=== PATIENT | male | born 1995 | race Caucasian/White ===

== ENCOUNTER 2017-10-31 08:10 | Emergency (ER) | payer OTHER ==
[2017-10-31] MEDS: NS 1,000 ML IV (09:23)
[2017-10-31] MEDS: ONDANSETRON 4MG/2ML VIAL (J2405) IV (09:24)
[2017-10-31] MEDS: METOCLOPRAMIDE INJ 10MG/2ML VIAL (J2765) IV (09:24)
[2017-10-31 09:25] LABS: BASO # 0.1 10^3/uL (0.0-0.2); BASO % 0.9 % (0.0-1.0); EOS # 0.3 10^3/uL (0.0-0.50); EOS % 3.9 % (0.0-3.0); HEMATOCRIT 47.2 % (42.0-52.0); HEMOGLOBIN 16.1 g/dl (14.0-18.0); IMMATURE GRANULOCYTE % 0.2 % (0-3.0); LYMPH # 2.6 10^3/uL (1.5-6.5); MEAN CORPUSCULAR HEMOGLOBIN 29.2 pg (27.0-33.0); MEAN CORPUSCULAR HGB CONC 34.1 g/dl (32.0-36.5); MEAN CORPUSCULAR VOLUME 85.5 fl (80.0-96.0); MONO # 0.6 10^3/uL (0.0-0.8); MONO % 8.9 % (0.0-5.0); NEUTROPHILS # 3.1 10^3/uL (1.8-7.7); NEUTROPHILS % 47.1 % (36.0-66.0); PLATELET COUNT, AUTOMATED 297 10^3/uL (150-450); RED BLOOD COUNT 5.52 10^6/uL (4.30-6.10); RED CELL DISTRIBUTION WIDTH 12.7 % (11.5-14.5); WHITE BLOOD COUNT 6.6 10^3/uL (4.0-10.0)
[2017-10-31 09:48] LABS: ALBUMIN 3.9 GM/DL (3.2-5.2); ALBUMIN/GLOBULIN RATIO 1.05 (1.00-1.93); ALKALINE PHOSPHATASE 103 U/L (45-117); ALT/SGPT 23 U/L (12-78); ANION GAP 7 MEQ/L (8-16); AST/SGOT 12 U/L (7-37); BILIRUBIN,TOTAL 0.7 MG/DL (0.2-1.0); BLOOD UREA NITROGEN 10 MG/DL (7-18); CALCIUM LEVEL 8.4 MG/DL (8.5-10.1); CARBON DIOXIDE LEVEL 29 MEQ/L (21-32); CHLORIDE LEVEL 107 MEQ/L (98-107); CPK CREATINE PHOSPHOKINASE 107 U/L (39-308); CREATININE FOR GFR 0.87 MG/DL (0.70-1.30); GLOMERULAR FILTRATION RATE > 60.0 (>60); GLUCOSE, FASTING 100 MG/DL (70-100); LIPASE 84 U/L (73-393); MB/CK RELATIVE INDEX 0.93 (< OR =4); POTASSIUM SERUM 4.2 MEQ/L (3.5-5.1); SODIUM LEVEL 143 MEQ/L (136-145); TOTAL PROTEIN 7.6 GM/DL (6.4-8.2); TROPONIN I < 0.02 NG/ML (< 0.10)
[2017-10-31 09:53] LABS: INFLUENZA A AMPLIFICATION NEGATIVE (NEGATIVE); INFLUENZA B AMPLIFICATION NEGATIVE (NEGATIVE)
== END 2017-10-31 11:00 | disposition home or self-care (01) ==
LOC: M ED 08:10
DX: J06.9 Acute upper respiratory infection, unspecified (principal); R07.89 Other chest pain; R10.84 Generalized abdominal pain; R11.2 Nausea with vomiting, unspecified; R19.7 Diarrhea, unspecified; Z80.1 Family history of malignant neoplasm of trachea, bronchus and lung; Z88.8 Allergy status to other drugs, medicaments and biological substances
CPT/HCPCS: J2405

== ENCOUNTER 2018-02-09 17:17 | Emergency (ER) | payer OTHER ==
[2018-02-09 18:51] LABS: HEMOGLOBIN 18.3 g/dl (13.5-17.5); MEAN CORPUSCULAR HEMOGLOBIN 29.7 pg (27.0-33.0); MEAN CORPUSCULAR HGB CONC 34.5 g/dl (32.0-36.5); PLATELET COUNT, AUTOMATED 341 10^3/uL (150-450); RED BLOOD COUNT 6.16 10^6/uL (4.30-6.10); RED CELL DISTRIBUTION WIDTH 12.9 % (11.5-14.5); WHITE BLOOD COUNT 8.1 10^3/uL (4.0-10.0)
[2018-02-09 19:16] LABS: AMPHETAMINES LEVEL URINE NEGATIVE (NEGATIVE); BARBITURATES URINE NEGATIVE (NEGATIVE); BENZODIAZEPINES URINE NEGATIVE (NEGATIVE); CANNABINOIDS URINE NEGATIVE (NEGATIVE); COCAINE METABOLITE URINE NEGATIVE (NEGATIVE); METHADONE URINE NEGATIVE (NEGATIVE); OPIATES URINE NEGATIVE (NEGATIVE); PHENCYCLIDINE URINE NEGATIVE (NEGATIVE)
[2018-02-09 19:27] LABS: ALBUMIN 4.3 GM/DL (3.2-5.2); ALBUMIN/GLOBULIN RATIO 0.98 (1.00-1.93); ALKALINE PHOSPHATASE 92 U/L (45-117); ALT/SGPT 39 U/L (12-78); ANION GAP 9 MEQ/L (8-16); AST/SGOT 18 U/L (7-37); BILIRUBIN,DIRECT 0.4 MG/DL (0.0-0.2); BILIRUBIN,TOTAL 1.7 MG/DL (0.2-1.0); BLOOD UREA NITROGEN 14 MG/DL (7-18); CALCIUM LEVEL 9.9 MG/DL (8.5-10.1); CARBON DIOXIDE LEVEL 30 MEQ/L (21-32); CHLORIDE LEVEL 101 MEQ/L (98-107); CREATININE FOR GFR 0.98 MG/DL (0.70-1.30); ETHYL ALCOHOL (ETHANOL) 0.003 % (0.000-0.010); GLOMERULAR FILTRATION RATE > 60.0 (>60); GLUCOSE, FASTING 132 MG/DL (70-100); POTASSIUM SERUM 4.7 MEQ/L (3.5-5.1); SALICYLATE LEVEL < 1.7 MG/DL (5.0-30.0); SODIUM LEVEL 140 MEQ/L (136-145); THYROID STIMULATING HORMONE 0.967 uIU/ML (0.358-3.740); TOTAL PROTEIN 8.7 GM/DL (6.4-8.2)
[2018-02-09 19:34] LABS: ACETAMINOPHEN LEVEL < 2.0 UG/ML (10.0-30.0)
== END 2018-02-09 21:44 | disposition home or self-care (01) ==
LOC: M ED 17:17
DX: R45.89 Other symptoms and signs involving emotional state (principal); Z88.8 Allergy status to other drugs, medicaments and biological substances
CPT/HCPCS: G0480

== ENCOUNTER 2019-02-28 23:24 | Inpatient (IN) | payer OTHER ==
[~2019-02-28] VITALS: Ht 185.4 cm; Wt 69.2 kg
[~2019-02-28 23:24] MED LIST: MUCI600T37 PO; REGL10TA6 PO; ZANA4TAB PO; ZOFR4TAB14 PO
[2019-03-01 00:52] LABS: HEMATOCRIT 49.9 % (42.0-52.0); HEMOGLOBIN 17.1 g/dl (13.5-17.5); MEAN CORPUSCULAR HEMOGLOBIN 31.1 pg (27.0-33.0); MEAN CORPUSCULAR HGB CONC 34.3 g/dl (32.0-36.5); MEAN CORPUSCULAR VOLUME 90.9 fl (80.0-96.0); PLATELET COUNT, AUTOMATED 302 10^3/uL (150-450); RED BLOOD COUNT 5.49 10^6/uL (4.30-6.10); WHITE BLOOD COUNT 6.2 10^3/uL (4.0-10.0)
[2019-03-01 01:01] LABS: ACETAMINOPHEN LEVEL < 2.0 UG/ML (10.0-30.0); ALBUMIN 4.1 GM/DL (3.2-5.2); ALT/SGPT 26 U/L (12-78); BILIRUBIN,DIRECT 0.3 MG/DL (0.0-0.2); BILIRUBIN,TOTAL 1.2 MG/DL (0.2-1.0); BLOOD UREA NITROGEN 14 MG/DL (7-18); CALCIUM LEVEL 8.3 MG/DL (8.5-10.1); CARBON DIOXIDE LEVEL 32 MEQ/L (21-32); CHLORIDE LEVEL 104 MEQ/L (98-107); CREATININE FOR GFR 0.94 MG/DL (0.70-1.30); ETHYL ALCOHOL (ETHANOL) < 0.003 % (0.000-0.010); GLOMERULAR FILTRATION RATE > 60.0 (>60); GLUCOSE, FASTING 104 MG/DL (70-100); POTASSIUM SERUM 3.6 MEQ/L (3.5-5.1); SALICYLATE LEVEL < 1.7 MG/DL (5.0-30.0); SODIUM LEVEL 142 MEQ/L (136-145); TOTAL PROTEIN 7.6 GM/DL (6.4-8.2)
[2019-03-01 01:11] LABS: AMPHETAMINES LEVEL URINE NEGATIVE (NEGATIVE); BARBITURATES URINE NEGATIVE (NEGATIVE); BENZODIAZEPINES URINE NEGATIVE (NEGATIVE); CANNABINOIDS URINE NEGATIVE (NEGATIVE); COCAINE METABOLITE URINE NEGATIVE (NEGATIVE); METHADONE URINE NEGATIVE (NEGATIVE); OPIATES URINE NEGATIVE (NEGATIVE); PHENCYCLIDINE URINE NEGATIVE (NEGATIVE)
[2019-03-01] MEDS ORDERED: ACETAMINOPHEN TAB 650MG DOSE (2X325MG) PO PRN (04:45)
[2019-03-01] MEDS ORDERED: MAALOX 30 ML SUSP *UDC PO PRN (04:45)
[2019-03-01] MEDS ORDERED: traZODone 50 MG TAB PO PRN (04:45)
[2019-03-01] MEDS ORDERED: MOM 30ML SUSPENSION UDC PO PRN (04:45)
[2019-03-01] MEDS ORDERED: OLANZapine ORAL DISINTEGRATING TAB 5MG PO PRN (04:45)
[2019-03-01 05:21] VITALS: BP 130/85
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
--- NOTE | 2019-03-01 15:14 | HPEPDOC ---
General Date of Admission Mar 01, 2019 at 04:32 Date of Service: Mar 01, 2019 Chief Complaint The patient is a 23-year-old male Who presented to the emergency room with a suicidal ideation History of Present Illness Patient is a 23-year-old male with a past medical history of childhood asthma who presented to the emergency room with thoughts of suicide. Patient has reported that he has no prior episodes of this occurring the past. No history of psychiatric issues currently being managed by psychiatry. Hospitalist service was called for medical management/screening. Currently patient denies any headache, nausea, vomiting, chest pain, shortness of breath, palpitations, abdominal pain, constipation, diarrhea, urinary discomfort or any fevers or chills within the last 2 weeks. Patient reports that his appetite has been fairly normal without any significant change in his weight. Home Medications No Active Prescriptions or Reported Meds Allergies Coded Allergies: ibuprofen (Verified Allergy, Mild, HIVES, 03/01/19) Past Medical History Medical History Childhood asthma Surgical History Root canal Family History - Mother and father with no reported medical problems Social History - Denies the use of illicit drugs; patient reports that he uses a vape; reports that he drinks red wine - Denies recent travel or sick contacts - Lives alone - Patient attends [employer] Review of Systems Other systems 10 point review of systems complete, all negative otherwise stated in HPI Vital Signs - Vitals: BP 130/85, HR 58, RR 18, Sat 100%RA, Temp 97.1F - General: Lying in bed, No acute distress, Speaking in full sentences, AAOx3 - HEENT: NC, AT, PERRLA - CVS: RRR, +S1S2 - Lungs: Fair air entry bilaterally, No appreciable wheezing / rales / rhonchi - Abdomen: Soft, Non-distended, Non-tender - Extremities: No lower extremity edema, No calf tenderness - Neuro: No focal motor or sensory deficit - Skin: No visible rashes Laboratory Data Labs 24H Laboratory Tests 2 03/01/19 00:35: Nucleated Red Blood Cells % (auto) 0.0, Anion Gap 6L, Glomerular Filtration Rate > 60.0, Calcium Level 8.3L, Aspartate Amino Transf (AST/SGOT) 15, Alanine Aminotransferase (ALT/SGPT) 26, Alkaline Phosphatase 98, Total Bilirubin 1.2H, Direct Bilirubin 0.3H, Total Protein 7.6, Albumin 4.1, Albumin/Globulin Ratio 1.17, Thyroid Stimulating Hormone (TSH) 1.090, Salicylates Level < 1.7L, Urine Amphetamines Screen NEGATIVE, Urine Benzodiazepines Screen NEGATIVE, Urine Opiates Screen NEGATIVE, Urine Methadone Screen NEGATIVE, Acetaminophen Level < 2.0L, Urine Barbiturates Screen NEGATIVE, Urine Phencyclidine Screen NEGATIVE, Urine Cocaine Metabolite Screen NEGATIVE, Urine Cannabinoids Screen NEGATIVE, Ethyl Alcohol Level < 0.003 CBC/BMP Laboratory Tests 03/01/19 00:35 Red Blood Count 5.49, Mean Corpuscular Volume 90.9, Mean Corpuscular Hemoglobin 31.1, Mean Corpuscular Hemoglobin Concent 34.3, Red Cell Distribution Width 11.9 Plan / VTE VTE Prophylaxis Ordered?: Yes Plan Plan Suicidal ideation - Patient reports that he presented to the emergency room with complaints of suicidal ideation - Patient denies any prior history - Currently being managed by psychiatry Childhood asthma - No evidence of exacerbation - No inhaled therapy ordered DVT prophylaxis - c/w early ambulation Please reconsult as needed Male change management specialist was present for the duration of this history and physical examination SHARA GAN MD Mar 01, 2019 15:14
[2019-03-01 18:12] VITALS: BP 112/56
[2019-03-02 06:24] VITALS: BP 114/57
--- NOTE | 2019-03-02 15:49 | MHIPN ---
DATE OF SERVICE: 03/02/2019 The patient today states that he is not suicidal. He tells me "I only had one suicidal thought yesterday, so I don't know why I got admitted." He then states when I asked him about depression, he says "That is nonexistent." He says he slept good. He has no complaints except that he is upset that he is in the hospital. MENTAL STATUS EXAMINATION: The patient is alert and oriented times three. Eye contact is fair. Psychomotor activity is normal. He is verbally spontaneous. There is no formal thought disorder noted. His mood is okay. His affect is consistent with his mood and full range. He is not psychotic, suicidal, or homicidal. Concentration is fair. Memory intact. Insight and judgment fair. DIAGNOSES: Unspecified depressive disorder, rule out posttraumatic stress disorder (PTSD), rule out antisocial personality disorder. TREATMENT PLAN: At this point, we will continue to observe and monitor the patient for continued elevation and stabilization of his mood and for continued resolution of any suicidal ideations, and we will titrate medications as indicated.
[2019-03-02 18:01] VITALS: BP 126/73
[2019-03-03 06:11] VITALS: BP 108/59
--- NOTE | 2019-03-03 09:08 | MHIPNPDOC ---
[facility] Progress Note Progress Note DATE OF SERVICE: 03/03/19 HISTORY: Patient is a 23 -year-old , AD, male, with history of self--harm by cutting and seen in therapy/group therapy at [facility] for it who presented to ED with his Nohemi due to pt endorsing depression and SI with no plan after groups therapy due to them talking about "heavy things" and stating he wanted to be in a "safe environment per ED. In ED, pt stated that his groups were really depressing as they reminded him of an ex-girlfriend that committed suicide in high school which made him feel guilty and belief that "the therapist doesn't like me, it there was a cartoon version you'd see steam coming out of their ears" (per ED made sarcastic comments when seen make eval difficult). In ED pt denied SI and stated "not that I would ever do it, I just go accepted to [employer] and wouldn't want to tarnish anything" with going. He also stated in ED "I lack emotional concerns for others." Pt also seen in ED with multiple scratches on his forearms he stated were from a friend's cat but Nohemi showed ED staff a text in which pt stated cuts were self-inflicted, and he has a history of this per [facility]. Denied HI in ED VITAL SIGNS: see below NEW TEST RESULTS: see below CURRENT MEDICATIONS: See below. MENTAL STATUS EXAMINATION: General Appearance: well groomed, appears stated age, hospital scrubs/clothing, other (linear cuts on outer forearm healing well) Build: average Demeanor: average, calm Eye Contact: fair Activity: average Behavior: cooperative, calm Speech: clear, reg/rate,rhythm,volume Mood: euthymic, full Mood fine Affect: full, congruent, full range Thought Process: logical/linear, intact Thought Content (Delusions): none reported, denies SI, HI, AVH Thought Content (Other): none reported, appropriate Thought Content (Aggressive): none reported Perception (Hallucinations): none reported Perception (Other): none reported Cognition (Impairment of): none reported Cognition(Intelligence Est.): average Oriented: Awake, Alert, Oriented times three Insight: fair Judgment: Fair Psychosis: Denies DIAGNOSES: depression unspecified r/o PTSD r/o Antisocial personality d/o ASSESSMENT:Pt seen and states that his mood is "alright.". States he slept well last night. Still feels he does not need any medication and appears to be doing well with group attendance. He is attending groups and finding them helpful. He denies SI/HI, hallucinations, delusions. Pt feels safe here. MANAGEMENT PLAN: continue plan medications: none TIME SPENT: 30 minutes. Vital Signs Vital Signs Date Time Temp Pulse Resp B/P (MAP) Pulse Ox O2 Delivery O2 Flow Rate FiO2 03/03/19 06:11 98.7 52 18 108/59 (75) 03/01/19 04:30 100 02/28/19 23:28 Room Air Current Medications Current Medications Acetaminophen (Tylenol Tab) 650 mg Q6HP PRN PO HEADACHE or DISCOMFORT; Start 03/01/19 at 04:45 Al Hydrox/Mg Hydrox/Simethicone (Mylanta) 30 ml Q4HP PRN PO HEARTBURN/INDIGESTION; Start 03/01/19 at 04:45 Home Med (Med Rec Complete!) ASDIRECTED XX ; Start 03/01/19 at 05:45; Stop at 05:45; Status DC Magnesium Hydroxide (Milk Of Magnesia) 30 ml DAILYPRN PRN PO CONSTIPATION; Start 03/01/19 at 04:45 Olanzapine (ZyPREXA ZYDIS) 5 mg Q4HP PRN PO AGITATION; Start 03/01/19 at 04:45 Trazodone HCl (Desyrel) 50 mg QHSP PRN PO INSOMNIA; Start 03/01/19 at 04:45 Allergies Coded Allergies: ibuprofen (Verified Allergy, Mild, HIVES, 03/01/19) LEONARDA COELHO DO Mar 03, 2019 8:36 am
[2019-03-03 18:00] VITALS: BP 108/67
[2019-03-04 06:35] VITALS: BP 111/61
--- NOTE | 2019-03-04 13:14 | MHIPN ---
DATE: 03/04/2019 SUBJECTIVE: I do not need any medications. I will see my therapist. I do not like the drips. OBJECTIVE: This is a 23-year-old male who was seen in [facility] himself. Has a history of self harm. He was admitted for depression. He endorsed that after the groups he did not have any suicidal thoughts. MENTAL STATUS EXAMINATION: Causally dressed, cooperative. Made good eye contact. Speech rate, rhythm and volume are good. Mood is depressed. Affect is constricted. Thought process is linear and goal directed. Denied any suicidal or homicidal ideas. Denied any delusions. He is alert and oriented to time, place and person, Memory is intact. Insight good and judgment limited. VITAL SIGNS: Temperature 99, pulse 50, respiratory rate 18, blood pressure 111/61. ASSESSMENT: Depressive disorder unspecified. PLAN: Continue current medications. Continue individual, group therapy. I encouraged him to take his medications. Estimated length of stay 3-4 days.
[2019-03-04 18:02] VITALS: BP 112/57
[2019-03-05 06:00] VITALS: BP 117/58
--- NOTE | 2019-03-05 14:04 | MHIPN ---
DATE: 03/05/2019 SUBJECTIVE: I attended group. They do not help me. OBJECTIVE: This is a 23-year-old male who has seen [facility] groups cutting himself. He has a history of self harm. Was admitted for depression. He reports that the group do not help him, that is why he is reluctant to go. He is refusing all of the medications. MENTAL STATUS EXAMINATION: He is causally dressed and cooperative. Makes good eye contact. Thought process linear, goal directed. Denies any suicidal or homicidal ideas. Denies any delusions speech, rate and volume is good. Mood is mildly depressed. Affect is somewhat constricted. Memory is intact. He is alert and oriented to time, place and person. Insight is good. VITAL SIGNS: Temperature 97.8, pulse 52, respiratory rate 14, blood pressure 117/80. ASSESSMENT: Depressive disorder unspecified. PLAN: Continue individual, group and milieu therapy. Encouraged him to take his medications. Encouraged him to take antidepressants. Estimated length of stay 3-4 days.
[2019-03-05 18:01] VITALS: BP 108/69
[2019-03-06 06:31] VITALS: BP 117/57
--- NOTE | 2019-03-06 12:27 | MHDSPDOC ---
[facility] Discharge Summary Discharge Summary DATE OF ADMISSION: Mar 01, 2019 at 04:32 DATE OF DISCHARGE: 03/06/19 Discharge Nisreen Piedra Male Date of : N/A Date of Service: 03/06/2019 Diagnoses Schizotypal personality disorder. 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 He was admitted and further evaluated. He has a history of sadomasochistic behaviors and magical thinking. His sadomasochistic behaviors are primarily isolated to his sexual behaviors, which he describes himself a significant part of the "Kink Community." Consultants Involved Hospitalist screening. Treatment and Progress On The Unit The patient was admitted to the unit and subsequently declined taking medications. He reported that this was due to his "look-in" belief system in which he treasured not being on medications. He was able to be stabilized as he utilized a therapeutic milieu. Patient was subsequently triage for discharge and for several days of stability where he was demonstrating no safety issues and no concerning ideation. The patient described that he does engage in his "Kinks," however, he does describe that these are engaged in situations where he uses protection and has significant safety. The patient reported that he would dorian nue with therapy as an outpatient. He was judged safe for discharge at the time and not able to be detained any longer on an involuntary admission. 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 He likely has difficulties with decompensation when placed under stress. He takes significant effort to avoid being detected by his chain of command. Mental Status Examination General: Well dressed with good hygiene Speech: Spontaneous and fluid Thought processes: Linear and logical MSK: Smooth and coordinated gait, no signs of tremors or involuntary orofacial movements Thought content: Future orientated Abstract reasoning, and computation: Intact Description of associations: Intact Description of abnormal or psychotic thoughts: Denies any suicidal or homicidal ideation. Denies any auditory or visual hallucinations. Does not appear to be responding to internal stimuli. Does not appear to be endorsing any bizarre or paranoid ideation. Judgment: fair Insight: fair Orientation: Alert and orientated 3 Cognition: Grossly normal Recent and remote memory: Intact Attention span and concentration: Intact Fund of knowledge: Adequate Mood: "okay" Affect: Euthymic with a full range Follow Up The social work team worked during the predischarge meeting in order to evaluate for further issues of lethality address them fully before discharge. They worked on safety planning with the patient's family members in order to ensure that the patient will have a safe and effective discharge. The amount of time spent in the coordination of care for this patient was approximately 30 minutes. Vital Signs/I&Os Vital Signs Date Time Temp Pulse Resp B/P (MAP) Pulse Ox O2 Delivery O2 Flow Rate FiO2 03/06/19 06:31 99.0 82 18 117/57 (77) 03/04/19 06:35 100 02/28/19 23:28 Room Air Medications No Active Prescriptions or Reported Meds Allergies Coded Allergies: ibuprofen (Verified Allergy, Mild, HIVES, 03/01/19) SHIRA QUEZADA DO Mar 06, 2019 12:27
== END 2019-03-06 13:30 | disposition home or self-care (01) | DRG 883 ==
LOC: M ED 23:24 → M ED INP 03-01 04:32 → M PSY 03-01 05:14
PROVIDERS: ADMIT Psychiatry & Neurology Addiction Medicine; ATTEND Psychiatry & Neurology Psychiatry
DX: F21 Schizotypal disorder (principal); R45.851 Suicidal ideations; Z88.6 Allergy status to analgesic agent